=== PATIENT | female | born 1980 | race African-American/Black ===

== ENCOUNTER 2022-08-19 14:41 | Outpatient (CLI) | payer BC | END 2022-08-19 14:42 | disposition home or self-care (01) | LOC: CSHMAMMO 14:41 | PROVIDERS: ATTEND Nurse Practitioner Family | DX: Z12.31 Encounter for screening mammogram for malignant neoplasm of breast (principal) | CPT/HCPCS: 77063; 77067 ==

== ENCOUNTER 2023-11-01 08:39 | Outpatient (CLI) | payer BC | END 2023-11-01 08:40 | disposition home or self-care (01) | LOC: CSHMAMMO 08:39 | PROVIDERS: ATTEND Nurse Practitioner Family | DX: Z12.31 Encounter for screening mammogram for malignant neoplasm of breast (principal); Z80.3 Family history of malignant neoplasm of breast | CPT/HCPCS: 77063; 77067 ==

== ENCOUNTER 2024-01-31 15:27 | Outpatient (CLI) | payer BC | END 2024-01-31 15:28 | disposition home or self-care (01) | LOC: CSHDTY/OP 15:27 | PROVIDERS: ATTEND Nurse Practitioner Family | DX: E66.01 Morbid (severe) obesity due to excess calories (principal) | CPT/HCPCS: 97802 ==